=== PATIENT | male | born 1945 | race Caucasian/White ===

== ENCOUNTER → 2019-06-30 | Day surgery (SDC) | payer MEDICARE, BC ==
[~2019-06-30] MED LIST: LIDOCAINE 2% INJ-PF (20 MG/ML) 10 ML AMPUL ONE
--- NOTE | 2019-06-30 09:44 | Operative Report ---
Operative Report DATE OF SURGERY: 06/30/19 PREOPERATIVE DIAGNOSIS: Left total hip prosthesis loosening. POSTOPERATIVE DIAGNOSIS: Left total hip prosthesis loosening OPERATION: Left hip aspiration under fluoroscopic guidance SURGEON: EDEN ALDANA JR ANESTHESIA: Local TISSUE REMOVED OR ALTERED: Approximately 1 cc of serosanguineous fluid obtained and sent to [facility] for evaluation COMPLICATIONS: None ESTIMATED BLOOD LOSS: None PROCEDURE: Mr. Johnson is a 73-year-old male who was brought in for evaluation of the etiology of his loosening of the left total hip arthroplasty acetabular component. He was placed supine on the fluoroscopic table. After an appropriate timeout he was prepped with ChloraPrep. An x-ray was taken to localize the hip. Under sterile technique 5 cc of lidocaine were injected along the pathway for the spinal needle. An 18-gauge spinal needle was placed under fluoroscopic guidance and with appreciable physical feedback I confirmed that we were in the joint and approximating the prosthesis. An attempt to withdraw fluid was performed which was difficult as there is not much fluid to pain. After passing a few times to try different locations I was able to obtain about 1 cc of serosanguineous fluid. This was then transferred to a red top tube and then packaged and sent to see the laboratories for alpha defensine analysis. A sterile dressing was placed the patient was brought off the operating table in stable condition.
--- NOTE | 2019-06-30 10:23 | RADIOLOGY REPORT (SQ) ---
EXAM DESCRIPTION: STEROID JT INJECT/HIP/KNEE/SHL; FLUORO NEEDLE PLACEMENT COMPLETED DATE/TIME: 06/30/2019 9:17 am REASON FOR STUDY: M25.552 LT HIP ASPIRATION, LT HIP PROSTHETIC LOOSENING M25.552 PAIN IN LEFT HIP COMPARISON: None. FLUOROSCOPY TIME: Less than 10 seconds Spot images saved to PACS. TECHNIQUE: Intra-operative images acquired during surgical procedure to evaluate progress. NUMBER OF IMAGES: 4 LIMITATIONS: None. FINDINGS: Fluoroscopy was provided for intraoperative procedure. Please refer to the operative repo rt for further discussion. IMPRESSION: IMAGE(S) OBTAINED DURING PROCEDURE. COMMENT: Quality ID 145: Final reports for procedures using fluoroscopy that document radiation exp osure indices, or exposure time and number of fluorographic images (if radiation exposure indices are not available) Please consult full operative report of the attending physician for description of the procedure. TECHNICAL DOCUMENTATION: JOB ID: [id number] [employer]- All Rights Reserved Reading location - IP/workstation name: [email or web address]
--- NOTE | 2019-06-30 10:23 | RADIOLOGY REPORT (SQ) ---
EXAM DESCRIPTION: STEROID JT INJECT/HIP/KNEE/SHL; FLUORO NEEDLE PLACEMENT COMPLETED DATE/TIME: 06/30/2019 9:17 am REASON FOR STUDY: M25.552 LT HIP ASPIRATION, LT HIP PROSTHETIC LOOSENING M25.552 PAIN IN LEFT HIP COMPARISON: None. FLUOROSCOPY TIME: Less than 10 seconds Spot images saved to PACS. TECHNIQUE: Intra-operative images acquired during surgical procedure to evaluate progress. NUMBER OF IMAGES: 4 LIMITATIONS: None. FINDINGS: Fluoroscopy was provided for intraoperative procedure. Please refer to the operative repo rt for further discussion. IMPRESSION: IMAGE(S) OBTAINED DURING PROCEDURE. COMMENT: Quality ID 145: Final reports for procedures using fluoroscopy that document radiation exp osure indices, or exposure time and number of fluorographic images (if radiation exposure indices are not available) Please consult full operative report of the attending physician for description of the procedure. TECHNICAL DOCUMENTATION: JOB ID: [id number] [employer]- All Rights Reserved Reading location - IP/workstation name: [email or web address]
== END ==
LOC: CCL 07:55
PROVIDERS: ATTEND Orthopaedic Surgery
DX: M25.552 Pain in left hip (principal); T84.89XA Other specified complication of internal orthopedic prosthetic devices, implants and grafts, initial encounter; Y83.9 Surgical procedure, unspecified as the cause of abnormal reaction of the patient, or of later complication, without mention of misadventure at the time of the procedure
CPT/HCPCS: 20610; 77002; J3490; Q9967

== ENCOUNTER → 2020-03-21 | Outpatient (CLI) | payer MEDICARE, BC ==
--- NOTE | 2020-03-21 11:04 | RADIOLOGY REPORT (SQ) ---
EXAM DESCRIPTION: CT LT LOWER EXTREMITY WITHOUT IMAGES COMPLETED DATE/TIME: 03/21/2020 7:36 am REASON FOR STUDY: M16.12 UNILATERAL PRIMARY OSTEOARTHRITIS, LEFT HIP COMPARISON: None. TECHNIQUE: Axial imaging performed through the Left hip with reformatted coronal and sagittal imaging windowed for bone and soft tissues. Images saved to PAC S. 3D IMAGING: Were 3D images as MIP, SSD, or volume rendering performed at the work station? Yes LIMITATIONS: Metal artifact. FINDINGS: Status post total hip arthroplasty with cerclage wire fixation of femoral neck fracture. Alignment is anatomic. No evidence of dislocation. No subcutaneous gas. IMPRESSION: Intact instrumentation status post hip arthroplasty and femoral neck fracture repair. Reading location - IP/workstation name: [email or web address]
== END ==
LOC: RAD 07:06
PROVIDERS: ATTEND Orthopaedic Surgery
DX: M16.12 Unilateral primary osteoarthritis, left hip (principal)

== ENCOUNTER 2020-03-26 05:18 | Inpatient (IN) | payer MEDICARE, BC ==
[2020-03-21 08:53] LABS: ABSOLUTE BASOPHILS # (AUTO) 0.1 10^3/uL (0.0-0.2); ABSOLUTE EOSINOPHILS # (AUTO) 0.2 10^3/uL (0.0-0.6); ABSOLUTE LYMPHOCYTES (AUTO) 1.7 10^3/uL (0.5-4.7); ABSOLUTE MONOCYTES (AUTO) 0.8 10^3/uL (0.1-1.4); ABSOLUTE NEUT (AUTO) 5.4 10^3/uL (1.7-8.2); BASOPHILS % (AUTO) 0.6 % (0-2); EOSINOPHILS % (AUTO) 2.7 % (0-6); HEMATOCRIT 45.6 % (37.9-51.0); HEMOGLOBIN 15.4 g/dL (13.5-17.0); LYMPHOCYTES % (AUTO) 20.7 % (13-45); MEAN CORPUSCULAR HEMOGLOBIN 29.7 pg (27.0-33.4); MEAN CORPUSCULAR HGB CONC 33.9 g/dL (32.0-36.0); MEAN CORPUSCULAR VOLUME 88 fl (80-97); MONOCYTES % (AUTO) 9.6 % (3-13); PLATELET COUNT 227 10^3/uL (150-450); RED BLOOD COUNT 5.19 10^6/uL (4.35-5.55); RED CELL DISTRIBUTION WIDTH 15.4 % (11.5-14.0); SEGMENTED NEUTROPHILS % (AUTO) 66.4 % (42-78); TOTAL CELLS COUNTED % (AUTO) 100 %; WHITE BLOOD COUNT 8.2 10^3/uL (4.0-10.5)
[2020-03-21 08:56] LABS: APPEARANCE,URINE SLIGHTLY-CLOUDY; BILIRUBIN,URINE NEGATIVE (NEGATIVE); COLOR,URINE YELLOW; GLUCOSE, URINE NEGATIVE (NEGATIVE); KETONES,URINE NEGATIVE (NEGATIVE); LEUKOCYTE ESTERASE,URINE NEGATIVE (NEGATIVE); NITRITE,URINE NEGATIVE (NEGATIVE); PROTEIN,URINE 30 mg/dL (NEGATIVE); URINE SPECIFIC GRAVITY 1.023; UROBILINOGEN,URINE NEGATIVE mg/dL (<2.0)
[2020-03-21 09:08] LABS: ADD MANUAL MICROSCOPIC YES
[2020-03-21 09:13] LABS: AMORPHOUS SEDIMENT,UR 1+; BACTERIA,URINE 2+ /HPF
[2020-03-21 09:19] LABS: ANION GAP 10 (5-19); BLOOD UREA NITROGEN 23 mg/dL (7-20); CALCIUM 9.6 mg/dL (8.4-10.2); CARBON DIOXIDE 28 mmol/L (22-30); CHLORIDE 105 mmol/L (98-107); GLUCOSE 109 mg/dL (75-110); POTASSIUM 4.9 mmol/L (3.6-5.0)
--- NOTE | 2020-03-21 11:58 | RADIOLOGY REPORT (SQ) ---
EXAM DESCRIPTION: CHEST PA/LATERAL IMAGES COMPLETED DATE/TIME: 03/21/2020 9:19 am REASON FOR STUDY: PRE-OP COMPARISON: None. EXAM PARAMETERS: NUMBER OF VIEWS: two views TECHNIQUE: Digital Frontal and Lateral radiographic views of the chest acquired. RADIATION DOSE: NA LIMITATIONS: none FINDINGS: LUNGS AND PLEURA: No opacities, masses or pneumothorax. No pleural effusion. MEDIASTINUM AND HILAR STRUCTURES: No masses or contour abnormalities. HEART AND VASCULAR STRUCTURES: Heart normal size. No evidence for failure. BONES: No acute findings. HARDWARE: None in the chest. OTHER: No other significant finding. IMPRESSION: NO SIGNIFICANT RADIOGRAPHIC FINDING IN THE CHEST. TECHNICAL DOCUMENTATION: JOB ID: [id number] 2010 [employer]- All Rights Reserved Reading location - IP/workstation name: [email or web address]
--- NOTE | 2020-03-21 13:49 | EKG REPORT ---
SEVERITY:- ABNORMAL ECG - SINUS BRADYCARDIA PROBABLE LEFT ATRIAL ABNORMALITY CONSIDER OLD ANTEROSEPTAL MT : Confirmed by: Will Seals MD 21-Mar-2020 13:48:46
[~2020-03-26 05:18] MED LIST changes: +ACETAMINOPHEN 325 MG TABLET PO PRN; +CEFAZOLIN 2 GM/D5W RTU 2 GM/50 ML RTUPB IV PRN; +CELECOXIB 200 MG CAPSULE PO PRN; +GABAPENTIN 100 MG CAPSULE PO PRN; +LACTATED RINGERS 1000 ML IV PRN; +LIDOCAINE 0.5% INJ-PF (5 MG/ML) 50 ML SDV SUBCUT PRN; -LIDOCAINE 2% INJ-PF (20 MG/ML) 10 ML AMPUL ONE; +ONDANSETRON HCL INJ/PF 4 MG/2 ML SDV IV PRN; +SCOPOLAMINE HYDROBROMIDE 1.5 MG PATCH.TD72 TD PRN; +TRAMADOL HCL 50 MG TABLET PO PRN; +TRANEXAMIC ACID INJ/PF 1,000 MG/10 ML SDV IV PRN; +VANCOMYCIN HCL 1,000 MG in DEXTROSE 5%-WATER 250 ML IV PRN
[2020-03-26] MEDS ORDERED: LIDOCAINE 0.5% INJ-PF (5 MG/ML) 50 ML SDV ONE (06:22)
[2020-03-26] MEDS ORDERED: EPINEPHRINE INJ/PF 1 MG/1 ML AMPULE ONE (06:23)
[2020-03-26] MEDS ORDERED: EPHEDRINE SULFATE INJ 50 MG/1 ML AMPULE ONE (06:24)
[2020-03-26] MEDS ORDERED: TRANEXAMIC ACID INJ/PF 1,000 MG/10 ML SDV ONE (06:24)
[2020-03-26] MEDS ORDERED: ONDANSETRON HCL INJ/PF 4 MG/2 ML SDV ONE (06:24)
[2020-03-26] MEDS ORDERED: FENTANYL CITRATE INJ/PF 100 MCG/2 ML AMPUL ONE ×2 (06:24→11:48)
[2020-03-26] MEDS ORDERED: MIDAZOLAM 2 MG/2 ML INJ ONE (06:24)
[2020-03-26] MEDS ORDERED: PROPOFOL INJ 200 MG/20 ML VIAL IV ONE (06:25)
[2020-03-26] MEDS ORDERED: CEFAZOLIN 2 GM/D5W RTU 2 GM/50 ML RTUPB IV ONE (07:05)
[2020-03-26] MEDS ORDERED: CELECOXIB 200 MG CAPSULE ONE (07:05)
[2020-03-26] MEDS ORDERED: ACETAMINOPHEN 325 MG TABLET ONE (07:05)
[2020-03-26] MEDS ORDERED: TRAMADOL HCL 50 MG TABLET ONE (07:05)
[2020-03-26] MEDS ORDERED: GABAPENTIN 100 MG CAPSULE ONE (07:05)
[2020-03-26] MEDS ORDERED: OXYCODONE HCL SR 10 MG TABLET PO ONE (07:05)
[2020-03-26] MEDS ORDERED: SCOPOLAMINE HYDROBROMIDE 1.5 MG PATCH.TD72 ONE (07:05)
[2020-03-26] MEDS ORDERED: KETOROLAC TROMETHAMINE INJ/PF 30 MG/1 ML SDV ONE (07:21)
[2020-03-26] MEDS ORDERED: BUPIVACAINE HCL 0.25 % INJ/PF (2.5 MG/1 ML) 30 ML VIAL ONE (07:21)
[2020-03-26] MEDS ORDERED: LIDOCAINE 1% INJ-PF (10 MG/ML) 30 ML SDV ONE (07:21)
[2020-03-26] MEDS ORDERED: VANCOMYCIN HCL INJ 1000 MG VIAL ONE ×2 (07:21→08:20)
[2020-03-26] MEDS ORDERED: GENTAMICIN SULFATE INJ 80 MG/2 ML VIAL ONE (08:20)
[2020-03-26] MEDS ORDERED: MEPERIDINE HCL/PF INJ 25 MG/1 ML DISP.SYRIN IV PRN (10:36)
[2020-03-26] MEDS ORDERED: PROMETHAZINE HCL INJ 25 MG/1 ML VIAL IV PRN ×2 (10:36)
[2020-03-26] MEDS ORDERED: ONDANSETRON HCL INJ/PF 4 MG/2 ML SDV IV PRN (10:36)
[2020-03-26] MEDS ORDERED: FENTANYL CITRATE INJ/PF 100 MCG/2 ML AMPUL IV PRN ×3 (10:36)
[2020-03-26] MEDS ORDERED: DIPHENHYDRAMINE HCL 50 MG/ML VIAL IV PRN (10:36)
[2020-03-26] MEDS ORDERED: ONDANSETRON 4 MG TAB.RAPDIS PO PRN (12:04)
[2020-03-26] MEDS ORDERED: OXYCODONE HCL IR 5 MG TABLET PO PRN ×4 (12:04)
[2020-03-26] MEDS ORDERED: ZOLPIDEM TARTRATE 5 MG TABLET PO PRN (12:04)
[2020-03-26] MEDS ORDERED: DOCUSATE SODIUM 100 MG CAPSULE PO PRN (12:04)
[2020-03-26] MEDS ORDERED: DIPHENHYDRAMINE HCL 25 MG CAPSULE PO PRN (12:04)
[2020-03-26] MEDS ORDERED: MORPHINE SULFATE 10 MG/ML INJ IV PRN ×2 (12:04)
[2020-03-26] MEDS ORDERED: NORMAL SALINE 1000 ML 1,000 ML IV ONE (12:04)
[2020-03-26] MEDS ORDERED: TRAMADOL HCL 50 MG TABLET PO PRN (12:04)
[2020-03-26] MEDS ORDERED: TRANEXAMIC ACID INJ/PF 1,000 MG/10 ML SDV IV ONE (12:04)
[2020-03-26] MEDS ORDERED: PANTOPRAZOLE SODIUM 20 MG TABLET.DR PO ONE (12:04)
[2020-03-26] MEDS ORDERED: DEXAMETHASONE SOD PHOS INJ 10 MG/1 ML VIAL IV ONE (12:04)
--- NOTE | 2020-03-26 12:04 | Operative Report ---
Operative Report DATE OF SURGERY: 03/26/20 PREOPERATIVE DIAGNOSIS: right hip periprosthetic joint infection, second stage POSTOPERATIVE DIAGNOSIS: right hip periprosthetic joint infection, second stage OPERATION: Right total hip revision second stage. SURGEON: EDEN ALDANA JR ANESTHESIA: Spinal COMPLICATIONS: none ESTIMATED BLOOD LOSS: 500 PROCEDURE: This is the second stage for a prior left total hip arthroplasty periprosthetic infection. For stage was performed approximately 5 months ago with a Prostalac antibiotic spacer. Preoperative planning included multiple lab studies that demonstrated the patient has cleared the infection is best to our knowledge. Preoperatively patient was provided spinal anesthesia. Never laid supine on the operating table. They were given 2 g of Ancef and 1 g of vancomycin preoperatively. The left lower extremity was prepped and draped in sterile sterile fashion. The prior incision was marked. An appropriate timeout was performed followed by incision, repeating the prior posterior approach. We carried this through scar tissue into the gluteus. Immediately upon dissecting through fascia and gluteus there was a return of synovial fluid. This was sent for culture. The fluid appeared serous and healthy without concerns for infection. There was no capsular structure approximating the hip joint deep to this layer. A Charnley retractor was used to retract the fascia. We proceeded to debride about the base of the implants until we obtained good visualization of the interface between the implants, cement, and bony surface. Due to the constrained acetabular construct the femoral head was dislocated in situ and the stem was presented. The most proximal cable about the stem was cut and removed. This was loose and able to easily be tapped out. After this we carefully further expose the acetabulum. I was able to remove the polyethylene component containing the femoral head leaving behind the cement in the acetabulum. After this osteotomes were used to gently break up the cement and remove all cement piecemeal from the acetabulum. After this I carefully inspected the periphery of the acetabulum and the potential capacity for bony fixation. The posterior wall was healthy with adequate bone stock as well as that of the ischium and pubis, however the anterior wall had a moderate defect directly anteriorly as well as carried into the medial wall with a void of bone medially. Overall the tissue appeared healthy without signs of infection. Multiple cultures were sent both from the tissue about the femoral implant as well as the margins of the acetabular implant. The back table calcium sulfate beads were made, 10 g mixed with 280 mg gentamicin and 1 g of vancomycin. Began reaming the acetabulum without medializing her superior rising my reamers. My intention was to remain at the rim and expand until a good fit was obtained. A 67 reamer we had good interference fit and the decision was made to proceed with a multihole 68 acetabulum. The acetabulum was irrigated copiously with dilute Betadine solution and the final implant was placed. This was then impacted until a secure interference fit was obtained. Fluoroscopy was used to ensure appropriate orientation of the acetabulum and the potential for obtaining good ischial and pubic screws. Through the center hole we placed some of the calcium sulfate beads. With the assistance of fluoroscopy for screws were placed superiorly as well as 2 screws in the ischium and one screw in the pubis. We then impacted a MDM liner. I then turned my attention to the femur. The prior osteotomy appeared to have healed substantially and we decided to proceed with a fit and fill type stem. Initially we reamed up to an 11 reamer and then began broaching. Once we achieved an 11 broach we had secure seating as well as stability to version and using fluoroscopy a good fit. This in conjunction with a 127 degree trunnion and a +4 head allowed for excellent stability and near equal leg lengths. At this point all trials were removed followed by copious irrigation with dilute Betadine followed by a Aricept soak. I then placed some more calcium sulfate beads down the canal followed by impaction of the final stem. The dual mobility construct was built on the back table while we proceeded with a second Aricept soak. The trunnion was cleaned and dried and the final femoral head construct was secured on the trunnion. This was then reduced again we had near equal leg lengths with excellent stability. Proceeded to begin closing the hip with the intent to create a capsular closure. Prior to closure the remaining calcium sulfate beads were placed into the hip joint. Much of the tissue was scarred from his repeat surgeries and there is no piriformis to reduce. I continued with approximating some of the capsular material to the posterior aspect of the femur taking care to avoid the sciatic nerve. After this was performed with a 0 Vicryl in a running fashion. I then oversewed this layer with a #2 strata fix. #2 strata fix was then used to close the fascial layer into the gluteus. Number 2 strata fix was used in the adipose layer. The subcutaneous layer utilized 2 oh barbed Monocryl followed by a running horizontal mattress type II 0 nylon. Silver lining was then placed over the wound followed by negative pressure wound dressing. The patient was then transferred to the PACU in stable condition.
--- NOTE | 2020-03-26 12:48 | RADIOLOGY REPORT (SQ) ---
EXAM DESCRIPTION: PELVIS AP IMAGES COMPLETED DATE/TIME: 03/26/2020 12:33 pm REASON FOR STUDY: post op M16.12 UNILATERAL PRIMARY OSTEOARTHRITIS, LEFT HIP Z79.899 OTHER LONG TE RM (CURRENT) DRUG THERAPY COMPARISON: None. NUMBER OF VIEWS: Two view(s). TECHNIQUE: Digital radiographic images of the left hip post-procedure. LIMITATIONS: None. FINDINGS: BONES: No worrisome or unexpected findings post-procedure. DEVICE: Total hip replacement. Components of the device in appropriate location. SOFT TISSUES: No worrisome findings. Expected postoperative soft tissue changes. IMPRESSION: 1. SATISFACTORY POSTOPERATIVE LEFT HIP TECHNICAL DOCUMENTATION: JOB ID: [id number] 2010 [employer]- All Rights Reserved Reading location - IP/workstation name: [email or web address]
--- NOTE | 2020-03-26 13:11 | RADIOLOGY REPORT (SQ) ---
EXAM DESCRIPTION: NO CHG FLUORO; HIP IN OPERATING RM IMAGES COMPLETED DATE/TIME: 03/26/2020 12:37 pm REASON FOR STUDY: LEFT HIP REVISION ASSISTED WITH FLUORO IN OR COMPARISON: None. FLUOROSCOPY TIME: 0.3 minutes 4 Images saved to PACS LIMITATIONS: None. PROCEDURE: Left hip revision assisted with fluoro. FINDINGS: Images from fluoro document the procedure. IMPRESSION: Left hip revision assisted with fluoro. Refer to operative note for further information . COMMENT: PQRS 6045F: Fluoroscopy time of the procedure is documented in the report. TECHNICAL DOCUMENTATION: JOB ID: [id number] 2010 [employer]- All Rights Reserved Reading location - IP/workstation name: [email or web address]
--- NOTE | 2020-03-26 13:11 | RADIOLOGY REPORT (SQ) ---
EXAM DESCRIPTION: NO CHG FLUORO; HIP IN OPERATING RM IMAGES COMPLETED DATE/TIME: 03/26/2020 12:37 pm REASON FOR STUDY: LEFT HIP REVISION ASSISTED WITH FLUORO IN OR COMPARISON: None. FLUOROSCOPY TIME: 0.3 minutes 4 Images saved to PACS LIMITATIONS: None. PROCEDURE: Left hip revision assisted with fluoro. FINDINGS: Images from fluoro document the procedure. IMPRESSION: Left hip revision assisted with fluoro. Refer to operative note for further information . COMMENT: PQRS 6045F: Fluoroscopy time of the procedure is documented in the report. TECHNICAL DOCUMENTATION: JOB ID: [id number] 2010 [employer]- All Rights Reserved Reading location - IP/workstation name: [email or web address]
[2020-03-26] MEDS ORDERED: CEFAZOLIN 2 GM/D5W RTU 2 GM/50 ML RTUPB IV SCH (14:00)
[2020-03-26] MEDS: ACETAMINOPHEN 325 MG TABLET PO SCH ×2 (14:21→22:00)
[2020-03-26] MEDS: KETOROLAC TROMETHAMINE INJ/PF 30 MG/1 ML SDV IV SCH ×2 (14:21→22:01)
[2020-03-26] MEDS: CEFAZOLIN SODIUM 2 GM in DEXTROSE 5%-WATER 100 ML IV SCH ×3 (14:23→21:59)
[2020-03-26] MEDS ORDERED: GLYCOPYRROLATE 1 MG/5 ML VIAL ONE (14:41)
[2020-03-26] MEDS ORDERED: NITROGLYCERIN 0.4 MG/TAB 25 TAB/BOTTLE SL PRN (15:12)
[2020-03-26] MEDS ORDERED: (PENDING PHARMACY ID) (Metoprolol Succinate [Metoprolol Succinate] 100 MG) PO SCH (18:00)
[2020-03-26] MEDS: METOPROLOL SUCCINATE 50 MG TAB.SR.24H PO SCH (22:00)
[2020-03-26] MEDS ORDERED: ATORVASTATIN CALCIUM 80 MG TABLET PO SCH (22:00)
[2020-03-26] MEDS: GABAPENTIN 100 MG CAPSULE PO SCH (22:01)
[2020-03-27] MEDS: ACETAMINOPHEN 325 MG TABLET PO SCH ×2 (05:40→14:41)
[2020-03-27] MEDS: KETOROLAC TROMETHAMINE INJ/PF 30 MG/1 ML SDV IV SCH ×2 (05:41→14:40)
--- NOTE | 2020-03-27 08:02 | PDOC PROGRESS REPORT ---
Subjective Progress Note for:: 03/27/20 Subjective:: Patient is doing well this morning. Reports immediate improvement in pain. Reports being able to get up by himself and get out of bed yesterday and last night. Overall very motivated by his progress. Does report some urinary retention with difficulty urinating this morning. Reason For Visit: M16.12 UNILATERAL PRIMARY OSTEOARTHRITIS, LEFT HIP Physical Exam Vital Signs: Temp Pulse Resp BP Pulse Ox 97.5 F 57 L 18 103/61 99 03/26/20 23:12 03/26/20 23:12 03/26/20 23:12 03/26/20 23:12 03/26/20 23:12 Intake & Output 03/26/20 03/27/20 03/28/20 06:59 06:59 06:59 Intake Total 0 9459 Output Total 270 Balance 0 9189 Weight 129.27 kg 134.7 kg Physical Exam: No acute distress alert and oriented x3 Left lower extremity -Pulses 2+ distally -Compartments soft -Sensation grossly intact to L3-4-5 S1 -Motor grossly intact to EHL TA gastroc and quad Wound VAC in place, no drainage from the VAC. Results Laboratory Results: 03/21/20 08:03 03/21/20 08:03 Impressions: Chest X-Ray 03/21/20 00:00 IMPRESSION: NO SIGNIFICANT RADIOGRAPHIC FINDING IN THE CHEST. Fluoroscopy 03/26/20 00:00 IMPRESSION: Left hip revision assisted with fluoro. Refer to operative note for further information. Hip X-Ray 03/26/20 00:00 IMPRESSION: Left hip revision assisted with fluoro. Refer to operative note for further information. Pelvis X-Ray 03/26/20 00:00 IMPRESSION: 1. SATISFACTORY POSTOPERATIVE LEFT HIP Assessment & Plan - Diagnosis (1) History of revision of total replacement of left hip joint Is this a current diagnosis for this admission?: Yes Plan: - 2 doses of Ancef postoperatively q 8 hours to complete 24 hours perioperatively -We will send home with 3 months of antibiotics postoperatively. -Weightbearing as tolerated, no precautions, encourage out of bed RENAE for ADL training - PT/OT - Keep knee extended in bed, rolled towel under the ankle to obtain full extension -aspirin 325 daily for DVT prophylaxis for 6 weeks -multimodal pain management to avoid excessive narcotics, including gabapentin, tramadol, Toradol, acetaminophen. -Dressing should not be removed until seen in the office, changed batteries as needed -May shower with the dressing intact, if it starts to come off she should not get the incision wet. -Follow-up with Dr. Bebeto Goetz, orthopedic surgeon at [facility] surgery, in 10 days. Call for an appointment. . [address], [place] [address] - Time Time Spent with patient: Less than 15 minutes
[2020-03-27] MEDS: GABAPENTIN 100 MG CAPSULE PO SCH (09:09)
[2020-03-27] MEDS ORDERED: AMLODIPINE BESYLATE 5 MG TABLET PO SCH (10:00)
[2020-03-27] MEDS ORDERED: LOSARTAN POTASSIUM 50 MG TABLET PO SCH (10:00)
[2020-03-27] MEDS ORDERED: POLYETHYLENE GLYCOL 3350 POWDER 17 GM/1 PACKET PO SCH (10:00)
[2020-03-27] MEDS ORDERED: ASPIRIN 325 MG TABLET PO SCH (10:00)
[2020-03-27] MEDS: METOPROLOL SUCCINATE 50 MG TAB.SR.24H PO SCH (10:36)
[2020-03-27 17:07] VITALS: BP 110/68
[2020-03-28] MEDS ORDERED: CELECOXIB 200 MG CAPSULE PO SCH (10:00)
== END 2020-03-27 18:00 | disposition home health service (06) | DRG 468 ==
LOC: OROUT 05:18 → 4S 12:43
PROVIDERS: ADMIT Orthopaedic Surgery; ATTEND Orthopaedic Surgery
PROC: 0SPB0JZ Removal of Synthetic Substitute from Left Hip Joint, Open Approach (ICD-10-PCS; 2020-03-26)
PROC: 3E0U029 Introduction of Other Anti-infective into Joints, Open Approach (ICD-10-PCS; 2020-03-26)
PROC: 0SRB0JZ Replacement of Left Hip Joint with Synthetic Substitute, Open Approach (ICD-10-PCS; principal; 2020-03-26 07:30)
DX: T84.52XA Infection and inflammatory reaction due to internal left hip prosthesis, initial encounter (principal); M16.12 Unilateral primary osteoarthritis, left hip; I11.9 Hypertensive heart disease without heart failure; R33.9 Retention of urine, unspecified; Z79.899 Other long term (current) drug therapy; Z20.828 Contact with and (suspected) exposure to other viral communicable diseases; Z96.642 Presence of left artificial hip joint
CPT/HCPCS: 01215; 36415; 71046; 72170; 80048; 81001; 82040; 82306; 83036; 85025; 85652; 86140; 86850; 86900; 86901; 87070; 87075; 87205; 87635; 93005; 93010; C1713; C9359; C9803; J0171; J0690; J1580; J1885; J2250; J2405; J2704; J3010; J3370; J3490; J7060